=== PATIENT | female | born 1985 | race Caucasian/White ===

== ENCOUNTER 2017-06-07 05:52 | Observation (INO) | payer BC ==
[2017-05-09 14:55] VITALS: BMI 36.0
--- NOTE | 2017-05-09 15:16 | PAT Medication Instructions ---
Service Date May 09, 2017. Current Home Medication List Ibuprofen Tab (Advil), 200-600 MG PO BID PRN for Pain Medication Instructions For Your Scheduled Surgery - Hold the following medications the morning of surgery: Ibuprofen Tab (Advil), 200-600 MG PO BID PRN for Pain (otherwise okay to continue per surgeon) nothing to eat or drink after midnight If you have any questions please call us at [phone] or [phone] or [phone]
[2017-05-09 15:46] LABS: BASO % 0.1 %; BASO ABS # 0.01 K/uL (0-0.2); EOS % 2.6 %; HEMATOCRIT 39.2 % (37-47); HEMOGLOBIN 13.6 g/dL (12.0-16.0); IG# 0.02 K/uL (0.00-0.02); LYMPH % 28.5 %; LYMPH ABS # 2.16 K/uL (1.2-3.4); MEAN CELL VOLUME 89.1 fL (80-100); MEAN CORPUSCULAR HEMOGLOBIN 30.9 pg (25-34); MEAN CORPUSCULAR HGB CONC 34.7 g/dl (32-36); MEAN PLATELET VOLUME 10.6 fL (7.4-10.4); MONO ABS # 0.76 K/uL (0.11-0.59); NEUT % 58.5 %; NEUT ABS # 4.44 K/uL (1.4-6.5); PLATELET COUNT 180 K/uL (130-400); RED CELL DISTRIBUTION WIDTH CV 12.5 % (11.5-14.5); WHITE BLOOD COUNT 7.59 K/uL (4.8-10.8)
[~2017-06-07] VITALS: Ht 162.6 cm; Wt 95.3 kg
[2017-06-07] VITALS (9 sets, daily range): BP systolic 101–155; BP diastolic 56–92; PULSE 49–86; TEMP 36.5–36.9; O2SAT 91–100; Ht 162.6 cm; Wt 95.3 kg
[~2017-06-07 05:52] MED LIST: IBUP-103 PO
[2017-06-07] MEDS ORDERED: LACTATED RINGER'S 1000ML 1,000 ML IV SCH ×3 (06:00→11:00)
[2017-06-07] MEDS ORDERED: CEFAZOLIN 2000MG IV PUSH 10 ML IV SCH (06:00)
[2017-06-07] MEDS ORDERED: KETOROLAC TROMETHAMINE 30 MG/ML VIAL IV. PRN (07:00)
[2017-06-07] MEDS ORDERED: OXYCODONE/ACETAMINOPHEN 5-325 TAB PO PRN ×2 (07:00)
[2017-06-07] MEDS ORDERED: PROMETHAZINE HCL INJ 25 MG in SODIUM CHLORIDE 0.9% 50ML 50 ML IV PRN (07:00)
[2017-06-07] MEDS ORDERED: SIMETHICONE 80 MG CHEW PO PRN (07:00)
[2017-06-07] MEDS ORDERED: IBUPROFEN 600 MG TAB PO PRN (07:00)
[2017-06-07] MEDS ORDERED: PROMETHAZINE HCL INJ 12.5 MG in SODIUM CHLORIDE 0.9% 50ML 50 ML IV PRN ×2 (07:00→09:30)
[2017-06-07] MEDS ORDERED: MEPERIDINE HCL 50 MG/ML CARP IV PRN ×2 (07:00)
[2017-06-07] MEDS ORDERED: ACETAMINOPHEN 325 MG TAB PO PRN (07:00)
[2017-06-07] MEDS ORDERED: ONDANSETRON INJ 2 MG/ML 2 ML VIAL IV PRN ×2 (07:00→09:30)
--- NOTE | 2017-06-07 07:00 | History & Physical Bridge Note ---
H&P Re-Evaluation Bridge Note: I have examined the patient, reviewed the History & Physical and in the interval since the performance of the History & Physical I have noted the following changes of clinical significance: No changes noted
[2017-06-07] MEDS ORDERED: OXYC-57 PO ×2 (07:05→07:20)
[2017-06-07] MEDS ORDERED: MIDAZOLAM HCL 1 MG/ML 2ML VIAL ONE (07:06)
[2017-06-07] MEDS ORDERED: FENTANYL CITRATE INJ 50 MCG/1 ML 2 ML VIAL ONE (07:06)
--- NOTE | 2017-06-07 07:06 | Discharge Instructions ---
Discharge Instructions Date of Service Jun 07, 2017. Visit Reason for Visit: Abnormal Uterine Bleeding Discharge Discharge Diagnosis / Problem: Hysterectomy Discharge Goals Goal(s): Specific goals Activity Recommendations Activity Limitations: per Instructions/Follow-up section Anesthesia . Post Anesthesia Instructions: If you have had General Anesthesia or IV Sedation: * Do not drive today. * Resume driving when surgeon permits. * Do not make important decisions or sign legal documents today. * Call surgeon for: 1. Temperature elevations greater than 101 degrees F. 2. Uncontrollable pain. 3. Excessive bleeding. 4. Persistent nausea and vomiting. 5. Medication intolerance (nausea, vomiting or rash). * For nausea and vomiting use only clear liquids such as: tea, soda, bouillon until nausea subsides, then gradually increase diet as tolerated. * If you have any concerns or questions, call your surgeon's office. If physician is unavailable and it is an emergency, call 911 or go to the nearest emergency room. . Instructions / Follow-Up Instructions / Follow-Up POST OPERATIVE: BOWEL FUNCTION/MEDICATIONS: 1. Constipation pain and discomfort are the most common complaints 5-7 days after surgery. Points 2-6 address the things that can help. 2. Chewing gum can help stimulate the gut and help improve digestion and motility. 3. Milk of Magnesia 1-2 times per day until return of bowel function. 4. Colace is a stool softener that helps. Taking this 2-3 times per day until bowel function returns to normal is highly recommended. 5. Dulcolax is a laxative that may be used if several days have passed without a bowel movement. Alternatively Miralax may be used daily instead. 6. Drink plenty of fluids as this will also reduce constipation. 7. Narcotic pain medications will be prescribed by your physician. They are safe to use and we encourage you to use them. If you are not allergic, ibuprofen will also be prescribed. Many patients will be able to transition off of the narcotic medications to ibuprofen by postoperative day 3. ACTIVITY RECOMMENDATIONS: 1. Get plenty of rest and listen to your body. If you are tired, take a nap. 2. You may shower, but do not take a tub bath until you see your doctor at the 2 week post operative visit. 3. Absolutely NO intercourse and nothing in the vagina until you are examined by your doctor at the 6 week visit. At that visit it will be determined when such activities can be resumed. This can range from 6-12 weeks after your surgery depending on healing time. 4. The main physical activity in the first week should be walking. By the second week you can slowly increase activity. There are no limits on walking up and down stairs. 5. Do not lift more than 5-10 lbs for 4 weeks. Remember the "one-handed rule", i.e. if you can lift something with only one hand it's likely okay. 6. Minimize agriculture scientist like vacuuming and exercising for 4 weeks. "Overdoing it" can lead to incisions not healing, pain and vaginal bleeding , so again, listen to your body. 7. Driving can be resumed when you feel able. Do not drive within 24 hours of taking a narcotic medication. EXPECTATIONS: 1. Vaginal spotting, bleeding and discharge are common after surgery. There may even be an odor to the discharge which is often related to sutures used in the vagina. If you experience heavy vaginal bleeding, call the office number day or night [phone]. 2. Bladder discomfort is common after surgery from the catheter. This usually resolves in 1-2 weeks. 3. By the end of the 3rd or 4th week you should be feeling much better. It may take up to 6 weeks for your energy levels to return to normal. 4. Narcotic medications have side effects such as: dizziness, headache, nausea and/or vomiting. If you suspect your pain medication is causing problems, call our office and we may be able to prescribe an alternate medication. 5. The skin incisions are often covered with a liquid bandage. This will gradually peel off over time. CALL THE OFFICE IF YOU HAVE ANY OF THE FOLLOWIN. Temperature of 101 degrees or higher. 2. Severe abdominal or pelvic pain not relieved by pain medication. 3. Persistent nausea or vomiting. 4. Increased pain with urination or difficulty urinating. 5. Bright red bleeding that soaks more than 1 pad per hour. CONTACT PHONE NUMBERS: Main Office: [phone] Surgical Nurse: [phone] extension [phone] FOLLOW-UP: Post-Operative Appointments: * Individual instructions will have been given about the timing of your first examination, but this is usually at the end of the second week home. * You will need to call the office at soon after discharge to make the appointment for your post-op check-up if it has not already been scheduled. * Additional information regarding activity, sexual intercourse and when to return to work will be given at this appointment. WE WISH YOU A SPEEDY RECOVERY! Diet Recommendations Recommended Home Diet: resume previous diet Pending Studies Studies pending at discharge: no Medical Emergencies . Who to Call and When: Medical Emergencies: If at any time you feel your situation is an emergency, please call 911 immediately. . Non-Emergent Contact Non-Emergency issues call your: Primary Care Provider . . "Provider Documentation" section prepared by Kim Ochoa. . [place] Drug Monitoring Program Search Results: patient reviewed within database, no issues identified
[2017-06-07] MEDS ORDERED: HYDROmorphone INJ 2 MG/ML SYR/VIAL ONE ×2 (07:42→09:14)
[2017-06-07] MEDS ORDERED: DEXAMETHASONE SOD INJ 4 MG/ML VIAL ONE (08:08)
[2017-06-07] MEDS ORDERED: NEOSTIGMINE METHYLSULFATE 5 MG/5 ML SYR ONE (08:08)
[2017-06-07] MEDS ORDERED: PROPOFOL IV EMULSION 10 MG/ML 20 ML VIAL IV ONE (08:08)
[2017-06-07] MEDS ORDERED: LIDOCAINE HCL 2% 2 ML VIAL (20MG/ML) ONE (08:08)
[2017-06-07] MEDS ORDERED: ROCURONIUM BROMIDE 10 MG/ML 5 ML VIAL IV ONE (08:08)
[2017-06-07] MEDS ORDERED: GLYCOPYRROLATE INJ 0.2 MG/ML VIAL ONE (08:08)
[2017-06-07] MEDS ORDERED: ONDANSETRON INJ 2 MG/ML 2 ML VIAL ONE (08:08)
[2017-06-07] MEDS ORDERED: IV FLUIDS COMPLETED PRN (08:15)
[2017-06-07] MEDS ORDERED: METHYLENE BLUE 0.5% 10 ML VIAL ONE (08:30)
[2017-06-07] MEDS: HYDROmorphone INJ 0.5 MG/0.5 ML SYR IV PRN ×3 (09:14→09:25)
--- NOTE | 2017-06-07 09:21 | [facility] Post Operative Brief Note ---
Immediate Operative Summary Operative Date Jun 07, 2017. Pre-Operative Diagnosis Abnormal uterine bleeding; pelvic pain, malposition of Essure coil Post-Operative Diagnosis Same as preop Procedure(s) Performed Robotic-assisted Total Laparoscopic Hysterectomy, bilateral salpingectomy, lysis of adhesions, cystoscopy Surgeon Dr. Ochoa Reconciliation Manager Surgeon(s) Dr. Henriquez Estimated Blood Loss 20 cc Findings Normal uterus, tubes, ovaries, appendix. Specimens A: uterus, cervix, bilateral fallopian tubes Complication(s) None Disposition Recovery Room / PACU
[2017-06-07] MEDS ORDERED: EpHEDrine SULFATE INJ 50 MG/ML AMP IV PRN (09:30)
[2017-06-07] MEDS ORDERED: NALOXONE HCL 0.4 MG/1 ML VIAL/CARP IV PRN (09:30)
[2017-06-07] MEDS ORDERED: FLUMAZENIL 0.1 MG/1 ML 10 ML VIAL IV PRN (09:30)
[2017-06-07] MEDS ORDERED: ATROPINE SULFATE 0.1 MG/ML 5ML SYR IV PRN (09:30)
--- NOTE | 2017-06-07 09:56 | Anesthesiology Progress Note ---
Anesthesia Post Op Note Date & Time Jun 07, 2017 at 09:56 Vital Signs Pain Intensity: 3 Vital Signs Past 12 Hours Date Time Temp Pulse Resp B/P (MAP) Pulse Ox O2 Delivery O2 Flow Rate FiO2 06/07/17 09:43 36.5 06/07/17 09:41 125/72 06/07/17 09:40 53 16 100 06/07/17 09:40 53 06/07/17 09:36 130/67 06/07/17 09:35 60 14 100 06/07/17 09:35 59 14 06/07/17 09:31 125/70 06/07/17 09:30 63 18 06/07/17 09:30 64 18 100 06/07/17 09:26 130/71 06/07/17 09:25 62 13 06/07/17 09:25 61 13 100 06/07/17 09:21 128/69 06/07/17 09:20 63 13 100 06/07/17 09:20 63 13 06/07/17 09:16 128/71 06/07/17 09:15 71 20 06/07/17 09:15 71 20 100 06/07/17 09:11 129/74 06/07/17 09:10 78 15 100 06/07/17 09:10 78 15 06/07/17 09:06 124/66 06/07/17 09:05 96 19 06/07/17 09:05 94 19 100 06/07/17 09:04 127/78 06/07/17 09:00 36.6 93 16 127/78 99 Nasal Cannula 3 06/07/17 06:13 36.5 65 18 131/74 (93) 99 Room Air Notes Mental Status: alert / awake / arousable, participated in evaluation Pt Amnestic to Procedure: Yes Nausea / Vomiting: adequately controlled Pain: adequately controlled Airway Patency, RR, SpO2: stable & adequate BP & HR: stable & adequate Hydration State: stable & adequate Anesthetic Complications: no major complications apparent
[2017-06-07] MEDS ORDERED: SCOPOLAMINE 1.5 MG TDSY TD SCH (12:30)
[2017-06-07 14:46] LABS: HEMOGLOBIN 13.6 g/dL (12.0-16.0)
[2017-06-07] MEDS ORDERED: CHECK SCOPOLAMINE PATCH PLACEMENT SCH (16:00)
[2017-06-07] MEDS ORDERED: DOCUSATE SODIUM 100 MG CAP PO SCH (21:00)
--- NOTE | 2017-06-21 13:00 | Discharge Summary ---
Discharge Summary Date of Service Jun 21, 2017. Discharge Summary Admission Date: Jun 07, 2017 at 07:25 Discharge Date: Jun 07, 2017 Discharge Disposition: Home Principal Diagnosis: Hysterectomy Immunizations: Have You Had Influenza Vaccine: Unknown History of Tetanus Vaccine?: Unknown Medication Reconciliation New Medications: Oxycodone/Acetaminophen 5MG/325MG (Percocet 5MG/325MG) Tab 1 TAB PO Q4H PRN for Pain (pain scale 1-5), #15 TAB PAIN Continued Medications: Ibuprofen Tab (Advil) 200 Mg Tab 200-600 MG PO BID PRN for Pain, TAB Hospital Course Total Time Spent: Less than 30 minutes This includes examination of the patient, discharge planning, medication reconciliation, and communication with other providers. Discharge Instructions Please refer to the electronic Patient Visit Report (Discharge Instructions) for additional information.
--- NOTE | 2017-06-21 13:37 | OPERATIVE REPORT ---
DATE OF OPERATION: 06/07/2017 PREOPERATIVE DIAGNOSES: Abnormal uterine bleeding, pelvic pain and malposition of the Essure coil. POSTOPERATIVE DIAGNOSES: Same. PROCEDURES: Robotic total laparoscopic hysterectomy, bilateral salpingectomy, lysis of adhesions and cystoscopy. SURGEON: Dr. Ochoa. BRAIDER TENDER: Dr. Henriquez. ESTIMATED BLOOD LOSS: 20 mL. FINDINGS: Normal tubes, uterus, ovaries and appendix. SPECIMENS: Uterus, cervix and bilateral fallopian tubes. COMPLICATIONS: None. DISPOSITION: Stable to recovery room. DESCRIPTION OF PROCEDURE: Lauren Mcrae was placed on the table in the dorsal lithotomy position with Yellofin stirrups, prepped and draped in standard sterile fashion and a hard time-out was taken prior to proceeding. Farris and a Ping4 uterine manipulator were placed. Entry was then made in the umbilicus in an optical manner without complication. Right and left lower quadrant ports were placed under direct visualization and with the abdomen insufflated and the patient in steep Trendelenburg, the robot was docked. Surgery proceeded with dissection of the bilateral fallopian tubes off the mesosalpinx, ligation and division of the uteroovarian ligaments and ligation and division of the round ligaments. Dissection of the bladder flap was done, and the uterine arteries were ligated and divided. Colpotomy was completed circumferentially and then the uterus/cervix/tubes were delivered through the vagina. Vaginal cuff was closed with V-arvind in the usual running manner. The robot was undocked, and cystoscopy was performed revealing good jets of [id number] urine from each UO. Closure proceeded with UR6 at the umbilical fascial layer and monocryl / dermabond at all sites. I attest to the content of the Intraoperative Record and any orders documented therein. Any exceptions are noted below. MTDD
== END 2017-06-07 19:08 | disposition home or self-care (01) ==
LOC: C.ACU 05:52 → C.MS4N 07:25 → ENRESERV 09:32 → C.MS4N 15:58
PROVIDERS: ADMIT Obstetrics & Gynecology; ATTEND Obstetrics & Gynecology
DX: N93.9 Abnormal uterine and vaginal bleeding, unspecified (principal); R10.2 Pelvic and perineal pain; E66.9 Obesity, unspecified; Z98.818 Other dental procedure status; Z98.890 Other specified postprocedural states; F17.200 Nicotine dependence, unspecified, uncomplicated; Z83.3 Family history of diabetes mellitus; Z68.36 Body mass index [BMI] 36.0-36.9, adult
CPT/HCPCS: 58571; S2900

== ENCOUNTER → 2017-06-11 | Outpatient (CLI) | payer BC ==
[~2017-06-11] MED LIST changes: +OXYC-57 PO
== END | disposition home or self-care (01) ==
LOC: C.LAB1850 12:49
PROVIDERS: ATTEND Obstetrics & Gynecology
DX: R39.15 Urgency of urination (principal)

== ENCOUNTER → 2017-06-19 | Outpatient (CLI) | payer BC | END | disposition home or self-care (01) | LOC: C.LAB1850 13:10 | PROVIDERS: ATTEND Obstetrics & Gynecology | DX: R10.2 Pelvic and perineal pain (principal); R30.9 Painful micturition, unspecified ==

== ENCOUNTER → 2017-12-18 | Outpatient (CLI) | payer BC ==
--- NOTE | 2017-12-18 17:21 | DIAGNOSTIC IMAGING REPORT ---
L-SPINE MIN 4 VIEWS ROUTINE CLINICAL HISTORY: Right sided low back pain with sciatica. COMPARISON: Lumbar spine radiograph October 25, 2015. FINDINGS: Alignment of the lumbar spine is anatomic. There are 5 lumbar type vertebra. No fracture or suspicious lesion is noted. Mild multilevel endplate osteophytosis is noted. Bowel gas pattern is normal. 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 IMPRESSION: 1. Mild multilevel endplate osteophytosis of the lumbar spine. 2. No lumbar spine fracture. Electronically signed by: Remi Hilliard M.D. 12/18/2017 5:20 PM Dictated Date/Time: 12/18/2017 5:18 PM
== END | disposition home or self-care (01) ==
LOC: C.RAD1850 15:44
PROVIDERS: ATTEND Physician Assistant
DX: M54.41 Lumbago with sciatica, right side (principal)

== ENCOUNTER → 2018-01-15 | Outpatient (CLI) | payer BC ==
[2018-01-15 17:38] LABS: HEP C IGG 13 YRS+OLDER_RFLX NEG (NEG)
== END | disposition home or self-care (01) ==
LOC: C.LAB1850 15:40
PROVIDERS: ATTEND Obstetrics & Gynecology
DX: Z11.3 Encounter for screening for infections with a predominantly sexual mode of transmission (principal)

== ENCOUNTER → 2018-01-17 | Outpatient (CLI) | payer BC | END | disposition home or self-care (01) | LOC: C.LAB1850 14:29 | PROVIDERS: ATTEND Obstetrics & Gynecology | DX: Z11.3 Encounter for screening for infections with a predominantly sexual mode of transmission (principal) ==